=== PATIENT | female | born 2000 | race Two or more races ===

== ENCOUNTER 2025-04-17 09:46 | Emergency (ER) | payer OTHER ==
[~2025-04-17] VITALS: Ht 162.6 cm; Wt 96.6 kg
[2025-04-17] MEDS ORDERED: PRENATE ELITE1 EAC2 PO (10:14)
[2025-04-17 10:20] VITALS: O2SAT 98
[2025-04-17] MEDS ORDERED: HYDROCODONE/CHLORPHEN P-STIREX 5 ML ML PO STA (10:38)
[2025-04-17 11:06] LABS: BASO % 0.3 % (0.1-1.2); EOS # 0.06 (0.04-0.54); HEMATOCRIT 34.1 % (34.1-44.9); HEMOGLOBIN 11.3 g/dL (11.2-15.7); LYMPH # 2.03 (1.18-3.74); LYMPH % 32.6 % (19.3-53.1); MEAN CORPUSCULAR HEMOGLOBIN 26.3 pg (25.6-32.2); MONO # 0.59 (0.24-0.82); MONO % 9.5 % (4.7-12.5); NEUT # 3.49 (1.56-6.13); PLATELET COUNT 245 K/uL (163-369); RED BLOOD COUNT 4.29 M/uL (3.93-5.22); RED CELL DISTRIBUTION WIDTH 13.6 % (11.6-14.4)
[2025-04-17 11:29] LABS: COVID-19 AG NEGATIVE (NEGATIVE)
[2025-04-17 11:46] LABS: INFLUENZA A AG NEGATIVE (NEGATIVE); INFLUENZA B AG NEGATIVE (NEGATIVE)
[2025-04-17 12:23] VITALS: BP 120/80
== END 2025-04-17 12:26 | disposition home or self-care (01) ==
LOC: ER 10:16
DX: O99.512 Diseases of the respiratory system complicating pregnancy, second trimester (principal); Z3A.21 21 weeks gestation of pregnancy; J06.9 Acute upper respiratory infection, unspecified; Z20.822 Contact with and (suspected) exposure to COVID-19

== ENCOUNTER 2025-06-28 13:01 | Inpatient (IN) | payer OTHER ==
[~2025-06-28] VITALS: Ht 152.4 cm; Wt 99.8 kg
[2025-06-28 12:55] VITALS: BP 117/70
[~2025-06-28 13:01] MED LIST: BETAMETHASONE ACETATE,SOD PHOS 30 MG/5 ML ML ONE; MAGNESIUM SULFATE IN WATER 0.04 GM/ML IV.SOLN IV ONE; MAGNESIUM SULFATE IN WATER 4 GM/100 ML PIGGYBACK IV ONE; PRENATE ELITE1 EAC2 PO
[2025-06-28 13:38] LABS: BASO % 0.2 % (0.1-1.2); EOS # 0.07 (0.04-0.54); EOS % 0.8 % (0.7-7.0); LYMPH # 1.97 (1.18-3.74); LYMPH % 22.1 % (19.3-53.1); MEAN PLATELET VOLUME 10.50 fl (9.4-12.4); MONO # 0.84 (0.24-0.82); MONO % 9.4 % (4.7-12.5); NEUT # 5.96 (1.56-6.13); NEUT % 67.1 % (34.0-71.1); RED CELL DISTRIBUTION WIDTH 13.4 % (11.6-14.4)
[2025-06-28 13:40] LABS: URINE APPEARANCE Clear; URINE BILIRRUBIN Negative (NEGATIVE); URINE BLOOD Negative; URINE COLOR Yellow; URINE GLUCOSE Negative (NEGATIVE); URINE KETONE Negative (NEGATIVE); URINE LEUKOCYTE Large; URINE NITRATE Negative; URINE PROTEIN Negative (NEGATIVE); URINE UROBILINOGEN 0.2 E.U./dl
[2025-06-28 13:44] LABS: URINE BACTERIA 641.9 uL (0.0-1933); URINE EPITHELIAL CELLS 14.4 uL (0.0-38.8); URINE RBC 3.2 uL (0.0-20.8); URINE WBC 7.8 uL (0.0-23.2)
[2025-06-28 13:53] LABS: URINE CAST 0.29 uL (0.0-1.40)
[2025-06-28 13:56] LABS: INR 1.03
[2025-06-28] MEDS ORDERED: BETAMETHASONE ACETATE,SOD PHOS 30 MG/5 ML ML IM ONE (14:00)
[2025-06-28] MEDS ORDERED: RINGERS SOLUTION,LACTATED 1,000 ML IV SCH (14:00)
[2025-06-28] MEDS ORDERED: MAGNESIUM SULFATE IN WATER 4 GM/100 ML PIGGYBACK IV ONE (14:00)
[2025-06-28] MEDS ORDERED: MAGNESIUM SULFATE IN WATER 0.04 GM/ML IV.SOLN IV SCH (14:00)
[2025-06-28] MEDS ORDERED: MAGNESIUM SULFATE IN WATER 500 ML IV SCH (14:00)
[2025-06-28 15:10] VITALS: BP 109/67
[2025-06-28 19:21] VITALS: BP 98/62
[2025-06-28 23:16] VITALS: BP 110/67; O2SAT 100
[2025-06-29 03:42] VITALS: BP 93/53; O2SAT 100
[2025-06-29 07:05] VITALS: BP 100/62
[2025-06-29 11:38] VITALS: BP 106/67
[2025-06-29] MEDS ORDERED: BETAMETHASONE ACETATE,SOD PHOS 30 MG/5 ML ML IM NR (13:00)
[2025-06-29 15:08] VITALS: BP 96/58
[2025-06-29 19:47] VITALS: BP 126/74
[2025-06-29 23:13] VITALS: BP 106/62
[2025-06-30 03:00] VITALS: BP 97/56
[2025-06-30 07:23] VITALS: BP 124/89
[2025-06-30 07:30] VITALS: BP 93/53
== END 2025-06-30 10:17 | disposition home or self-care (01) | DRG 833 ==
LOC: LDR 13:01
PROVIDERS: ADMIT Obstetrics & Gynecology; ATTEND Obstetrics & Gynecology
PROC: 4A1HXCZ Monitoring of Products of Conception, Cardiac Rate, External Approach (ICD-10-PCS; principal; 2025-06-28)
DX: O60.03 Preterm labor without delivery, third trimester (principal); Z3A.31 31 weeks gestation of pregnancy

== ENCOUNTER 2025-08-16 10:31 | Outpatient (CLI) | payer OTHER ==
[~2025-08-16 10:31] MED LIST changes: -BETAMETHASONE ACETATE,SOD PHOS 30 MG/5 ML ML ONE; -MAGNESIUM SULFATE IN WATER 0.04 GM/ML IV.SOLN IV ONE; -MAGNESIUM SULFATE IN WATER 4 GM/100 ML PIGGYBACK IV ONE
== END 2025-08-16 11:45 | disposition home or self-care (01) ==
LOC: NST 10:31
PROVIDERS: ATTEND Obstetrics & Gynecology Maternal & Fetal Medicine
DX: Z34.83 Encounter for supervision of other normal pregnancy, third trimester (principal)

== ENCOUNTER 2025-08-16 14:00 | Inpatient (IN) | payer OTHER ==
[~2025-08-16] VITALS: Ht 162.6 cm; Wt 3.6 kg
[2025-08-19 05:13] VITALS: BP 137/70
[2025-08-19] MEDS ORDERED: RINGERS SOLUTION,LACTATED 1,000 ML IV SCH ×2 (06:15→14:30)
[2025-08-19] MEDS ORDERED: AMPICILLIN SODIUM 2,000 MG VIAL IV ONE (06:15)
[2025-08-19] MEDS ORDERED: MORPHINE SULFATE 4 MG/ML CARTRIDGE IV PRN ×2 (06:15→14:30)
[2025-08-19 06:54] LABS: BASO % 0.3 % (0.1-1.2); EOS # 0.05 (0.04-0.54); EOS % 0.6 % (0.7-7.0); LYMPH # 2.24 (1.18-3.74); LYMPH % 26.1 % (19.3-53.1); MEAN PLATELET VOLUME 10.80 fl (9.4-12.4); MONO # 0.89 (0.24-0.82); MONO % 10.4 % (4.7-12.5); NEUT # 5.33 (1.56-6.13); NEUT % 62.1 % (34.0-71.1); RED CELL DISTRIBUTION WIDTH 13.8 % (11.6-14.4)
[2025-08-19 07:07] LABS: INR 1.01
[2025-08-19 07:41] VITALS: BP 136/71
[2025-08-19] MEDS ORDERED: AMPICILLIN SODIUM 1,000 MG in 0.9 % SODIUM CHLORIDE 100 ML IV SCH (09:00)
[2025-08-19] MEDS ORDERED: OXYTOCIN 500 ML IV SCH (09:15)
[2025-08-19 10:05] VITALS: BP 117/81
[2025-08-19] MEDS ORDERED: OXYTOCIN 20 UNITS/1000ML RL PIGGYBAG IV ONE (14:00)
[2025-08-19] MEDS ORDERED: OXYTOCIN 1,000 ML IV SCH (14:30)
[2025-08-19] MEDS ORDERED: ERYTHROMYCIN BASE OPHT 1GM EACH TUBE OP ONE (15:00)
[2025-08-19] MEDS ORDERED: SIMETHICONE 125 MG CAPSULE PO SCH (17:00)
[2025-08-19] MEDS ORDERED: GABAPENTIN 300 MG CAPSULE PO SCH (17:00)
[2025-08-19] MEDS ORDERED: ACETAMINOPHEN 500 MG GEL..CAP PO SCH (18:00)
[2025-08-19] MEDS ORDERED: KETOROLAC TROMETHAMINE 30 MG VIAL IV SCH (18:00)
[2025-08-19] MEDS ORDERED: ONDANSETRON HCL 2 MG/ML VIAL IV SCH (18:00)
[2025-08-19 18:21] VITALS: BP 100/62
[2025-08-20 00:28] VITALS: BP 114/77
[2025-08-20 04:00] VITALS: BP 113/64
[2025-08-20 06:33] LABS: BASO % 0.2 % (0.1-1.2); EOS # 0.04 (0.04-0.54); EOS % 0.4 % (0.7-7.0); LYMPH # 1.75 (1.18-3.74); LYMPH % 17.5 % (19.3-53.1); MEAN PLATELET VOLUME 11.10 fl (9.4-12.4); MONO # 1.18 (0.24-0.82); MONO % 11.8 % (4.7-12.5); NEUT # 6.97 (1.56-6.13); NEUT % 69.6 % (34.0-71.1); RED CELL DISTRIBUTION WIDTH 14.0 % (11.6-14.4)
[2025-08-20] MEDS ORDERED: OxyCODONE HCL 5 MG TABLET (ROXICODONE) PO PRN (08:00)
[2025-08-20] MEDS ORDERED: KETOROLAC TROMETHAMINE 10 MG TABLET PO SCH (08:00)
[2025-08-20 08:29] VITALS: BP 102/64
[2025-08-20] MEDS ORDERED: DOCUSATE SODIUM 100MG CAP PO SCH (09:00)
[2025-08-20 13:02] VITALS: BP 113/78
[2025-08-20 16:00] VITALS: BP 107/73
[2025-08-21 00:49] VITALS: BP 110/75
[2025-08-21] MEDS ORDERED: OxyCODONE HCL 5 MG TABLET (ROXICODONE) PO PRN (06:00)
[2025-08-21 08:14] VITALS: BP 99/65
== END 2025-08-21 14:58 | disposition home or self-care (01) | DRG 788 ==
LOC: OB/GYN 08-19 05:50 → LDR 08-19 05:50 → O/R 08-19 13:11 → OB/GYN 08-19 15:23
PROVIDERS: Obstetrics & Gynecology; ADMIT Obstetrics & Gynecology; ATTEND Obstetrics & Gynecology
PROC: 4A1HXCZ Monitoring of Products of Conception, Cardiac Rate, External Approach (ICD-10-PCS; 2025-08-19)
PROC: 10D00Z1 Extraction of Products of Conception, Low, Open Approach (ICD-10-PCS; principal; 2025-08-19 14:30)
DX: O82 Encounter for cesarean delivery without indication (principal); O62.0 Primary inadequate contractions; O33.8 Maternal care for disproportion of other origin; Z3A.39 39 weeks gestation of pregnancy; Z37.0 Single live birth